=== PATIENT | female | born 2000 | race Caucasian/White ===

== ENCOUNTER 2019-02-27 21:40 | Emergency (ER) | payer MEDICAID ==
[2019-02-27] MEDS ORDERED: Orphenadrine 100 MG Tab.ER PO ONE (21:56)
[2019-02-27] MEDS ORDERED: Ketorolac 60 MG/2 ML SDV IM ONE (21:56)
--- NOTE | 2019-02-27 22:02 | EDM.PDOC ---
ED HPI GENERAL MEDICAL PROBLEM - General Chief Complaint: Back Pain or Injury Stated Complaint: [facility] Time Seen by Provider: 02/27/19 21:44 Source of Information: Reports: Patient, RN Notes Reviewed History Limitations: Reports: No Limitations - History of Present Illness INITIAL COMMENTS - FREE TEXT/NARRATIVE: Patient is a 18-year-old female who presents to the ED via [facility] ambulance for evaluation of left lower back pain. The patient states she was crawling on the floor playing with her son today, and she turned sharply when she developed a very severe pain into her left lower back. This pain did radiate down her left leg. She states that everything seized up at that time, it was sharp and tight pain all at the same time. She would rate the pain at a 10 out of 10. The patient states that she had to lay on the floor for 3 hours, and ended up having to call the ambulance, because it was too painful to move. She denies any saddle anesthesia or loss of control of her bowel or bladder. She did receive 50 mcg of fentanyl in the ambulance, and states that that did help her pain. The patient denies any previous back pain or injury up until this. Left Back Pain Score (Numeric/FACES): 6 - Related Data Allergies Allergy/AdvReac Type Severity Reaction Status Date / Time latex Allergy Rash Verified 02/27/19 21:48 Home Meds: Home Meds SUMAtriptan Succinate [Imitrex] 25 mg PO ASDIRECTED PRN #20 tablet 08/02/18 [Rx] Past Medical History [employer] History: Reports: Psychiatric History: Reports: Anxiety, Depression - Past Surgical History HEENT Surgical History: Reports: Adenoidectomy Social & Family History - Caffeine Use Caffeine Use: Reports: None ED ROS GENERAL - Review of Systems Review Of Systems: See Below Constitutional: Reports: No Symptoms HEENT: Reports: No Symptoms Respiratory: Reports: No Symptoms Cardiovascular: Reports: No Symptoms Endocrine: Reports: No Symptoms GI/Abdominal: Reports: No Symptoms : Reports: No Symptoms Musculoskeletal: Reports: Back Pain (Left lower back pain with radiation to Left lower leg.) Skin: Reports: No Symptoms Neurological: Reports: No Symptoms Psychiatric: Reports: No Symptoms Hematologic/Lymphatic: Reports: No Symptoms Immunologic: Reports: No Symptoms ED EXAM,LOWER BACK PAIN/INJURY - Physical Exam Exam: See Below Exam Limited By: No Limitations General Appearance: Alert, WD/WN, No Apparent Distress Respiratory/Chest: No Respiratory Distress, Lungs Clear, Normal Breath Sounds, No Accessory Muscle Use, Chest Non-Tender Cardiovascular: Normal Peripheral Pulses, Regular Rate, Rhythm, No Murmur Back Exam: Normal Inspection, Decreased Range of Motion (d/t pain.), Muscle Spasm (left lower back, above iliac crest) Extremities: Normal Inspection, Normal Capillary Refill, Limited Range of Motion (d/t pain) Neurological: Alert, Normal Mood/Affect, Normal Dorsiflexion, Normal Plantar Flexion, No Motor/Sensory Deficits, Oriented x 3, Straight Leg Raise (L). No: Straight Leg Raise (R), Saddle Anesthesia Psychiatric: Normal Affect, Normal Mood Skin Exam: Warm, Dry, Intact, Normal Color, No Rash Course - Vital Signs Last Recorded V/S: Last Vital Signs Temp 98.3 F 02/27/19 21:43 Pulse 82 02/27/19 21:43 Resp 16 02/27/19 21:43 BP 120/80 02/27/19 21:43 Pulse Ox 99 02/27/19 21:43 - Orders/Labs/Meds Meds: Medications Discontinued Medications Generic Name Dose Route Start Last Admin Trade Name Davidq PRN Reason Stop Dose Admin Ketorolac Tromethamine 60 mg 02/27/19 21:56 02/27/19 22:02 Toradol IM 02/27/19 21:57 60 mg ONETIME ONE Administration Orphenadrine Citrate 100 mg 02/27/19 21:56 02/27/19 22:02 Norflex PO 02/27/19 21:57 100 mg ONETIME ONE Administration Tramadol HCl 50 mg 02/27/19 22:40 02/27/19 22:45 Ultram PO 02/27/19 22:41 50 mg ONETIME ONE Administration - Re-Assessments/Exams Free Text/Narrative Re-Assessment/Exam: 02/27/19 22:02 Patient presents to the ED for evaluation of a back injury. I have ordered 60 mg IM Toradol, and 100 mg PO Norflex for initial management. Suspect this might be due to aggravation of the sciatic nerve, will likely place her on a prednisone burst and a prescription for Norflex. 02/27/19 22:40 Patient was reassessed at bedside, and states that her pain is not a whole lot better, she still not able to move much at all. Have ordered 50 mg tramadol to see if this doesn't help provide further pain relief. 02/27/19 23:45 Patient was reassessed at bedside, she states that the pain is a lot better and was able to move a little bit in the room. We'll discharge her home with a prescription for prednisone as directed, tramadol 50 mg as directed, and Flexeril 10 mg as directed. Departure - Departure Time of Disposition: 23:45 Disposition: Home, Self-Care 01 Condition: Fair Clinical Impression: Low back pain Qualifiers: Chronicity: acute Back pain laterality: left Sciatica presence: with sciatica Sciatica laterality: sciatica of left side Qualified Code(s): M54.42 - Lumbago with sciatica, left side - Discharge Information *PRESCRIPTION DRUG MONITORING PROGRAM REVIEWED*: No *COPY OF PRESCRIPTION DRUG MONITORING REPORT IN PATIENT BASIL: No Instructions: Acute Back Pain, Adult, Back Injury Prevention, [id number] Forms: ED Department Discharge Additional Instructions: You have been evaluated in the ED for your lower back pain. Please use ice/heat as tolerated to the affected area. You may take tylenol 500 mg or ibuprofen 600mg q6 hrs for pain relief. Please do so until you have a tolerable level of pain with activity. Do not exceed 4000mg tylenol, Do not exceed 3200mg ibuprofen in a 24 hour time period. You have been provided with 3 different prescriptions: 1. Prednisone, please take one tab twice a day for 5 days, then 1 tab daily for 5 days. You will have 5 tabs extra in this prescription. 2. Tramadol 50 mg 1 tab every 6 hours as needed for pain not relieved by Tylenol or ibuprofen alone. 3. Flexeril, 1 tab 3 times daily as needed for muscle spasms, this medication may be taken at night only if it makes you too sleepy. Please return to ED if your symptoms should change or worsen.
[2019-02-27] MEDS ORDERED: traMADol 50 MG Tab PO ONE (22:40)
== END 2019-02-28 | disposition home or self-care (01) ==
LOC: JD.ED 21:40
DX: M54.42 Lumbago with sciatica, left side (principal); Z91.040 Latex allergy status
CPT/HCPCS: 96372; 99283; A9270; J1885